=== PATIENT | male | born 2000 | race Caucasian/White ===

== ENCOUNTER → 2023-10-06 | Emergency (ER) | payer BC ==
[2023-10-06 03:39] LABS: Absolute Lymphocytes (CBC) 2.5 K/uL (0.7-4.9); Hematocrit 42.6 % (39.6-49.0); Lymphocytes % 55.8 % (15.3-44.8); MCV 84.9 fL (80-100); MPV 8.6 fL (7.6-11.3); Platelets 200 thou/uL (152-406); RBC Red Blood Cell Count 5.02 M/uL (4.33-5.43)
[2023-10-06 04:05] LABS: Albumin 4.2 g/dL (3.4-5.0); Bilirubin Direct 0.1 mg/dL (0-0.2); Bilirubin Indirect, Calculated 0.3 mg/dL (0.2-0.8); Bilirubin Total 0.4 mg/dL (0.2-1.0); Magnesium 2.1 mg/dL (1.6-2.4); Potassium 3.6 mEq/L (3.5-5.1); Protein, Total 7.8 g/dL (6.4-8.2); Troponin High Sensitivity 3.5 pg/mL (<58.9)
[2023-10-06 04:07] LABS: Thyroid Stimulating Hormone 5.53 uIU/mL (0.358-3.740)
--- NOTE | 2023-10-06 04:14 | ER ---
Nurse's Notes [facility] Name: Bereket Riojas Age: 23 yrs Sex: Male : 2000 Arrival Date: 10/06/2023 Time: 02:32 Bed 7 Private MD: Diagnosis: Palpitations Presentation: 10/06 02:39 Chief complaint: Patient states: palpitations,onset 30 minutes BUTTON SEWER HAND. Patient denies any pf1 pain. Patient stated the palpitations started while studying. Coronavirus screen: Vaccine status: Patient reports receiving the 2nd dose of the covid vaccine. Client denies travel out of the [place] in the last 14 days. At this time, the client does not indicate any symptoms associated with coronavirus-19. Ebola Screen: Patient negative for fever greater than or equal to 101.5 degrees Fahrenheit, and additional compatible Ebola Virus Disease symptoms. Initial Sepsis Screen: Does the patient meet any 2 criteria? HR > 90 bpm. No. Patient's initial sepsis screen is negative. Does the patient have a suspected source of infection? No. Patient's initial sepsis screen is negative. Risk Assessment: Do you want to hurt yourself or someone else? Patient reports no desire to harm self or others. 02:39 Method Of Arrival: Ambulatory pf1 02:39 Acuity: PREMA 3 pf1 Historical: - Allergies: 02:45 No Known Allergies; pf1 - PMHx: 02:45 None; pf1 - PSHx: 02:45 None; pf1 - Immunization history:: Adult Immunizations up to date, Client reports receiving the 2nd dose of the Covid vaccine, [employer] Last tetanus immunization: < 10 years ago Flu vaccine is not up to date. - Social history:: Smoking status: Reported history of juuling and/or vaping. Patient uses alcohol, occasionally. Patient/guardian denies using street drugs. - Family history:: not pertinent. Screenin:22 [facility] ED Fall Risk Assessment (Adult) History of falling in the last 3 months, tm6 including since admission No falls in past 3 months (0 pts). Abuse screen: Denies threats or abuse. Denies injuries from another. Nutritional screening: No deficits noted. Tuberculosis screening: No symptoms or risk factors identified. Assessment: 03:22 General: Appears in no apparent distress. Behavior is calm, cooperative. Pain: tm6 Complains of pain in chest Pain does not radiate. Pain currently is 3 out of 10 on a pain scale. Quality of pain is described as fluttering. Neuro: Level of Consciousness is awake, alert, obeys commands, Oriented to person, place, time, situation. Cardiovascular: Reports "fluttering in chest" Capillary refill < 3 seconds Patient's skin is warm and dry. Rhythm is sinus rhythm. Respiratory: Airway is patent Respiratory effort is even, unlabored, Respiratory pattern is regular, symmetrical. GI: Abdomen is flat, non-distended. : No signs and/or symptoms were reported regarding the genitourinary system. EENT: No signs and/or symptoms were reported regarding the EENT system. Derm: No signs and/or symptoms reported regarding the dermatologic system. Musculoskeletal: No signs and/or symptoms reported regarding the musculoskeletal system. 04:14 Reassessment: Patient and/or family updated on plan of care and expected duration. Pain vc1 level reassessed. Patient is alert, oriented x 3, equal unlabored respirations, skin warm/dry/pink. Patient states feeling better. Patient states symptoms have improved. Vital Signs: 02:39 BP 151 / 97; Pulse 96; Resp 16; Temp 97.3; Pulse Ox 100% on R/A; Weight 79.38 kg; pf1 Height 5 ft. 10 in. ; Pain 0/10; 03:24 BP 134 / 83; Pulse 90; Resp 19; Pulse Ox 100% ; Pain 3/10; tm6 04:14 BP 121 / 76; Pulse 80; Resp 18; Pulse Ox 100% ; vc1 02:39 Body Mass Index 25.11 (79.38 kg, 177.8 cm) pf1 02:39 Pain Scale: Adult pf1 03:24 Pain Scale: Adult tm6 ED Course: 02:34 Patient arrived in ED. jj6 02:34 Oswaldo Coburn MD is Attending Physician. rt 02:45 Triage completed. pf1 03:22 Inserted saline lock: 20 gauge in right antecubital area, using aseptic technique. tm6 03:22 Patient maintains SpO2 saturation greater than 95% on room air. vc1 03:22 Patient has correct armband on for positive identification. Bed in low position. Call tm6 light in reach. Side rails up X 1. Provided Education on: plan of care. Client placed on continuous cardiac and pulse oximetry monitoring. NIBP monitoring applied. monitoring coordinator on. Door closed. Noise minimized. Lights dimmed. 03:22 Arm band placed on right wrist. vc1 03:27 XRAY Chest (1 view) In Process Unspecified. EDMS 04:14 No provider procedures requiring assistance completed. vc1 04:15 IV discontinued, intact, bleeding controlled, No redness/swelling at site. Pressure vc1 dressing applied. Administered Medications: No medications were administered Medication: 03:22 VIS not applicable for this client. tm6 Outcome: 04:13 Discharge ordered by . rt 04:14 Discharged to home ambulatory, with significant other, vc1 04:14 Condition: good 04:14 Discharge instructions given to patient, Instructed on discharge instructions, follow up and referral plans. Demonstrated understanding of instructions, follow-up care, 04:29 Patient left the ED. vc1 Signatures: Dispatcher [employer] EDMS Benjamin, Jyoti jj6 Marlin Suggs RN RN vc1 Oswaldo Coburn MD MD rt Meghna Salas RN RN pf1 Kerrie Rizvi RN RN tm6
--- NOTE | 2023-10-06 04:14 | EDPHYS ---
Physician Documentation [facility] Name: Bereket Riojas Age: 23 yrs Sex: Male : 2000 Arrival Date: 10/06/2023 Time: 02:32 Bed 7 Private MD: ED Physician Oswaldo Coburn HPI: 10/06 03:00 This 23 yrs old Male presents to ER via Ambulatory with complaints of Irregular Pulse, rt Chest Pain. 03:00 Patient presents to the ED with palpitations starting the 30 minutes prior to arrival. rt Patient states that he was 30 minutes occurred. Denies significant caffeine use, denies Adderall use. States that the symptoms have eased. Denies other acute complaints, symptoms are moderate severity, no other aggravating or elevating factors.. Historical: - Allergies: 02:45 No Known Allergies; pf1 - PMHx: 02:45 None; pf1 - PSHx: 02:45 None; pf1 - Immunization history:: Adult Immunizations up to date, Client reports receiving the 2nd dose of the Covid vaccine, [employer] Last tetanus immunization: < 10 years ago Flu vaccine is not up to date. - Social history:: Smoking status: Reported history of juuling and/or vaping. Patient uses alcohol, occasionally. Patient/guardian denies using street drugs. - Family history:: not pertinent. ROS: 03:00 Constitutional: Negative for fever, chills, and weight loss, Respiratory: Negative for rt shortness of breath, cough, wheezing, and pleuritic chest pain, Abdomen/GI: Negative for abdominal pain, nausea, vomiting, diarrhea, and constipation, MS/Extremity: Negative for injury and deformity, Skin: Negative for injury, rash, and discoloration, Neuro: Negative for headache, weakness, numbness, tingling, and seizure, Psych: Negative for depression, anxiety, suicide ideation, homicidal ideation, and hallucinations, 03:00 Cardiovascular: Positive for palpitations, Negative for chest pain, Exam: 03:00 Constitutional: This is a well developed, well nourished patient who is awake, alert, rt and in no acute distress. Head/Face: Normocephalic, atraumatic. Chest/axilla: Normal chest wall appearance and motion. Nontender with no deformity. No lesions are appreciated. Cardiovascular: Regular rate and rhythm with a normal S1 and S2. No gallops, murmurs, or rubs. Normal PMI, no JVD. No pulse deficits. Respiratory: Lungs have equal breath sounds bilaterally, clear to auscultation and percussion. No rales, rhonchi or wheezes noted. No increased work of breathing, no retractions or nasal flaring. Abdomen/GI: Soft, non-tender, with normal bowel sounds. No distension or tympany. No guarding or rebound. No evidence of tenderness throughout. Skin: Warm, dry with normal turgor. Normal color with no rashes, no lesions, and no evidence of cellulitis. MS/ Extremity: Pulses equal, no cyanosis. Neurovascular intact. Full, normal range of motion. Neuro: Awake and alert, GCS 15, oriented to person, place, time, and situation. Cranial nerves II-XII grossly intact. Motor strength 5/5 in all extremities. Sensory grossly intact. Cerebellar exam normal. Normal gait. Psych: Awake, alert, with orientation to person, place and time. Behavior, mood, and affect are within normal limits. 03:00 ECG was reviewed by the Attending Physician. Vital Signs: 02:39 BP 151 / 97; Pulse 96; Resp 16; Temp 97.3; Pulse Ox 100% on R/A; Weight 79.38 kg; pf1 Height 5 ft. 10 in. ; Pain 0/10; 03:24 BP 134 / 83; Pulse 90; Resp 19; Pulse Ox 100% ; Pain 3/10; tm6 04:14 BP 121 / 76; Pulse 80; Resp 18; Pulse Ox 100% ; vc1 02:39 Body Mass Index 25.11 (79.38 kg, 177.8 cm) pf1 02:39 Pain Scale: Adult pf1 03:24 Pain Scale: Adult tm6 MDM: 02:46 Patient medically screened. rt 04:31 Differential diagnosis: Palpitations, dysrhythmia, electrolyte disturbance, rt thyrotoxicosis. HEART Score: History: Slightly Suspicious (0), ECG: Normal (0), Age: < or = 45 years (0), Risk Factors: No Risk Factors Known (0), Troponin: < or = 1 x Normal Limit (0), Total Score = 0. Data reviewed: vital signs, nurses notes, lab test result(s), EKG, radiologic studies. Consideration of Admission/Observation Escalation of care including admission/observation considered. Patient very well-appearing, stable labs, unremarkable EKG, young, no significant risk factors, does not require mission at this time.. 10/06 02:52 Order name: Basic Metabolic Panel; Complete Time: 04:27 rt 10/06 02:52 Order name: CBC with Diff; Complete Time: 03:49 rt 10/06 02:52 Order name: LFT's; Complete Time: 04:27 rt 10/06 02:52 Order name: Magnesium; Complete Time: 04:27 rt 10/06 02:52 Order name: Troponin HS; Complete Time: 04:27 rt 10/06 02:52 Order name: TSH; Complete Time: 04:27 rt 10/06 04:11 Order name: T4 Free; Complete Time: 04:27 EDMS 10/06 02:52 Order name: XRAY Chest (1 view) rt 10/06 02:52 Order name: EKG; Complete Time: 02:52 rt 10/06 02:52 Order name: Cardiac monitoring; Complete Time: 03:22 rt 10/06 02:52 Order name: EKG - Nurse/Tech; Complete Time: 03:12 rt 10/06 02:52 Order name: IV Saline Lock; Complete Time: 03:22 rt 10/06 02:52 Order name: Labs collected and sent; Complete Time: 03:22 rt 10/06 02:52 Order name: O2 Per Protocol; Complete Time: 03:22 rt 10/06 02:52 Order name: O2 Sat Monitoring; Complete Time: 03:22 rt EC:00 Rate is 88 beats/min. Rhythm is regular, Normal Sinus Rhythm with No ectopy. Right axis rt deviation noted. [place] interval is normal. QRS interval is normal. QT interval is normal. No Q waves. T waves are Normal. No ST changes noted. Interpreted by me. Administered Medications: No medications were administered Disposition Summary: 10/06/23 04:13 Discharge Ordered Notes: Location: Home rt Problem: new rt Symptoms: have improved rt Condition: Stable rt Diagnosis - Palpitations rt Followup: rt - With: Private Physician - When: 2 - 3 days - Reason: Discharge Instructions: - Discharge Summary Sheet rt - Palpitations rt Forms: - Medication Reconciliation Form rt - Thank You Letter rt - Antibiotic Education rt - Prescription Opioid Use rt - Patient Portal Instructions rt - Leadership Thank You Letter rt Signatures: Dispatcher Oswaldo Santo MD MD rt Meghna Salas, RN RN pf1
[2023-10-06 04:50] VITALS: BP 121/76; TEMP 97.3; O2SAT 100
--- NOTE | 2023-10-06 20:32 | RAD REPORT ---
EXAM DESCRIPTION: RAD - Chest Single View - 10/06/2023 3:25 am CLINICAL HISTORY: PALPITATIONS COMPARISON: None TECHNIQUE: Single AP view of the chest. FINDINGS: Lung volumes adequate. Cardiac silhouette is normal in size. No pneumothorax. No large pleural effusion. No focal consolidation. No acute bony finding. IMPRESSION: No evidence of acute cardiopulmonary disease. Electronically signed by: Carly Fabian MD 10/06/2023 03:58 AM DIRECTOR OF SPECIAL EVENTS Due to temporary technical issues with the PACS/Fluency reporting system, reports are being signed by the in house radiologists without review as a courtesy to insure prompt reporting. The interpreting radiologist is fully responsible for the content of the report.
--- NOTE | 2023-10-09 11:05 | EKG ---
Test Date: 2023-10-06 Test Time: 02:52:02 Entry Level Accountant: CANDIS MEASUREMENT RESULTS: Intervals: Rate: 88 ID: [id number] QRSD: 88 QT: 380 QTc: 459 [place]: P: 73 ID: [id number] QRS: 96 T: 23 INTERPRETIVE STATEMENTS: Normal sinus rhythm Rightward axis Borderline ECG No previous ECG available for comparison Electronically Signed On 10-09-23 11:00:08 [employer] CONTROL WORKER by Terry Barnard
== END ==
LOC: ER 02:32
DX: R00.2 Palpitations (principal)
CPT/HCPCS: 36415; 71045; 80048; 80076; 83735; 84439; 84443; 84484; 85025; 93005; 99285